=== PATIENT | male | born 1955 | race Caucasian/White ===

== ENCOUNTER 2021-08-31 09:23 | Outpatient (CLI) | payer BC | END 2021-08-31 09:24 | disposition home or self-care (01) | LOC: BICULT 09:23 | PROVIDERS: ATTEND Physician Assistant | DX: R74.8 Abnormal levels of other serum enzymes (principal); K76.0 Fatty (change of) liver, not elsewhere classified | CPT/HCPCS: 76700 ==

== ENCOUNTER 2023-10-03 09:50 | Outpatient (CLI) | payer MEDICARE | END 2023-10-03 09:51 | disposition home or self-care (01) | LOC: SCSRAD 09:50 | PROVIDERS: ATTEND Physician Assistant | DX: M19.041 Primary osteoarthritis, right hand (principal); M19.042 Primary osteoarthritis, left hand | CPT/HCPCS: 80053; 80061; 81003; 82306; 84550; 85025; 86803; G0103 ==